=== PATIENT | male | born 1965 | race Caucasian/White ===

== ENCOUNTER → 2023-11-29 06:11 | Day surgery (SDC) | payer BC, SELFPAY | LOC: GI 06:11 | PROVIDERS: ATTENDING PHYSICIAN Internal Medicine | DX: Z12.11 Encounter for screening for malignant neoplasm of colon (principal); D12.0 Benign neoplasm of cecum; D12.3 Benign neoplasm of transverse colon; D12.8 Benign neoplasm of rectum; K62.1 Rectal polyp; Q43.8 Other specified congenital malformations of intestine; K56.2 Volvulus; Z86.010 Personal history of colon polyps | CPT/HCPCS: 45385; 45380; 88305 ==

== ENCOUNTER → 2023-12-05 12:08 | Outpatient (REF) | payer BC, SELFPAY | LOC: EMG 12:08 | PROVIDERS: ATTENDING PHYSICIAN Student in an Organized Health Care Education/Training Program | DX: R20.0 Anesthesia of skin (principal) | CPT/HCPCS: 95886; 95911 ==

== ENCOUNTER → 2023-12-10 16:21 | Outpatient (REF) | payer BC, SELFPAY | LOC: RAD 16:21 | PROVIDERS: ATTENDING PHYSICIAN Internal Medicine Cardiovascular Disease | DX: Z87.891 Personal history of nicotine dependence (principal); J98.4 Other disorders of lung; R06.09 Other forms of dyspnea | CPT/HCPCS: 71271 ==

== ENCOUNTER → 2023-12-11 07:03 | Outpatient (REF) | payer BC, SELFPAY | LOC: RSP 07:03 | PROVIDERS: ATTENDING PHYSICIAN Internal Medicine Cardiovascular Disease; FAMILY PHYSICIAN Student in an Organized Health Care Education/Training Program | DX: Z87.891 Personal history of nicotine dependence (principal) | CPT/HCPCS: 94727; 94729; 94060 ==

== ENCOUNTER 2023-12-15 09:43 | Emergency (ER) | payer OTHER, SELFPAY ==
[2023-12-15 09:55] VITALS: BP 132/79; BMI 30.9
[2023-12-15] MEDS: PERCOCET 5/325 1 TABLET PO (10:36)
[2023-12-15] MEDS: KEFLEX 500 MG PO (10:36)
[2023-12-15] MEDS: TORADOL 30 MG IM (10:37)
[2023-12-15] MEDS: ADACEL 0.5 ML IM (10:37)
--- NOTE | 2023-12-15 11:46 | ED.GENMED ---
History of Present Illness
General
Chief Complaint: Skin Surface Trauma
Source: patient
Exam Limitations: none
Time Seen by Provider: 12/15/23 10:03
Nursing documentation reviewed up to this point in time: agreed with
Travel History
Have you had any contact with someone who has COVID-19?: No
Do you have any symptoms of coronavirus? Fever > 100 degrees, chills, cough, shortness of breath, sore throat, loss of taste or smell, muscle aches, or headache?: No
History of Present Illness
History of Present Illness:
pt is a 58 y/o M with h/o r handedness
hld
smoker
copd
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 pt says the light bulb shattered and cut the hand, causing pain that radiates up hi sofrearm to elbow and painful flexion of his 4th finger
he feels the finger spasm and flex and then shoots a pain proximally
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
tetanus unknown
he doesn't have numbness in the finger or hand
no bleeding actively
Past History
Past History
ED Past Medical History: None
ED Past Surgical History: Appendectomy
Social History
Tobacco: Smoker
Alcohol: None
Drug: None
Personal:
Living: with family
Employment: Employed
Family History
Family History: Other
Review of Systems
Review of Systems
Allergies reviewed?: Yes
All Other Systems: Not applicable
Phy Exam
Physical Exam
Physical Exam:
GENERAL: Alert , in no apparent distress, comfortable at rest
HEAD: NCAT
CV: 2+ radial and ulnar pulses
cap refill intact
normal color to fingers
NEUROLOGICAL: Alert and oriented, no focal neuro deficits, , sensation grossly intact to light touch in hand
pt has painful flexion of the 4th finger; can extend but then gets shooting pain
SKIN: Warm and dry, irregular lacreation 4 cm dorsal righ thand over carpal region
MUSCULOSKELETAL: 4 cm laceration right hand
no obviuos exposed nerve
pt has shooting pain and limited rom due to the shooting pain
PSYCH: Normal and appropriate interaction.
Course
Orders/Labs/Results
Orders:
Orders
12/15/23 10:00
Wrist, Right 3 Views [CR Wrist - Right Min 3 Views] Urgent
Comment:
Reason For Exam: lac to wrist
12/15/23 10:30
Cephalexin Monohydrate [Keflex] 500 mg PO NOW STA
Ketorolac [Toradol] 30 mg IM NOW STA
Oxycodone/Acetaminophen [Percocet 5/325] 1 tablet PO NOW STA
Tetanus/Diphth/Acelpertussis [Adacel] 0.5 ml IM .ONCE ONE
Vital Signs
Initial and Last Documented VS:
Initial Vital Signs
Temp Pulse Resp BP Pulse Ox
98.1 F 75 17 132/79 96
12/15/23 09:55 12/15/23 09:55 12/15/23 09:55 12/15/23 09:55 12/15/23 09:55
Last Documented Vital Signs
Temp Pulse Resp BP Pulse Ox
98.1 F 75 17 132/79 96
12/15/23 09:55 12/15/23 09:55 12/15/23 09:55 12/15/23 09:55 12/15/23 09:55
Procedures
Laceration Closure
Right Dorsal Hand:
Status of Wound: clean
Description of Wound Edges: ragged and flap-well vascularized
Preparation: cleaned with saline
Anesthesia: 1% Lidocaine
Revision/Debridement: minor revision and irrigate-direct pressure
Wound exploration: explored to base- no FB
Type of Closure: single layer closure
Skin Closure Material: 4-0 nylon
Number of sutures: 6
MDM/Problems Addressed
Differential Diagnosis Includes:
nerve injury, laceration, retained fb
MDM/Problems Addressed:
i have a patient kortney rock 58 y/o m right hand dominant with dorsal hand laceration from a shattered lightbulb with pain extending proximally in the ulnar distribution and into this 4th finger with difficulty with full extension of the 4th
finger because it shoots pain up his forearm; I suspect the patient has a nerve injury x-rays are negative for foreign body or fracture. Patient's wound was irrigated, anesthetized and closed with suture bleeding was controlled. A volar splint was
placed by release and technical records clerk. I spoke with on-call orthopedist Dr. Taylor who was in agreement with the plan. Will cover with antibiotics, tetanus updated.
Return precautions given.
*Critical Care Note
Total Time (30-74mins, 75-104mins- exclusive of procedures): Not Applicable
ED Attending Note
-
Portions of this chart may have been created with voice recognition software.� Occasional wrong word or��sound alike� substitutions may have occurred due to the inherent limitations of voice recognition software.
Discharge Plan
Departure
Patient Disposition: Home (Routine Discharge)
Date of Disposition: 12/15/23
Time of Disposition: 11:44
Patient with high blood pressure during this ER visit?: No
Covid-19: Not Applicable
Discharge Problem:
Laceration of hand, right
Instructions: Laceration Repair With Stitches (DC)
Prescriptions:
New
cephalexin 500 mg capsule
500 mg PO Q8H Qty: 21 0RF
hydrocodone-acetaminophen 5-325 mg tablet
1 tab PO Q8H PRN (Reason: Pain) Qty: 9 0RF
No Action
doxycycline hyclate 100 MG capsule
100 mg PO Q12 Qty: 20 0RF
hydrocodone-acetaminophen 1 TABLET tablet
1 tab PO Q4HPRN PRN (Reason: pain) Qty: 14 0RF
ibuprofen 600 MG tablet
600 mg PO Q6 PRN (Reason: pain) Qty: 20 0RF
amoxicillin-pot clavulanate 1 TABLET tablet
1 tab PO Q12 Qty: 20 0RF
clindamycin phosphate 30 GM gel
1 applic topical BIDPRN PRN (Reason: hand infection)
Referrals:
Andre Devries MD [Active] - Follow up in 5-7 days (hand surgery)
Stand Alone Forms: Return to Work
Activity Restrictions/Additional Instructions:
Your x-ray was normal. It is possible that you have a nerve injury to your ulnar nerve. You should follow-up with a hand specialist.
in the meantime, keep the splint and dressing on for 24 hours. after that you can remove them to bathe and then reapply a dressing an dthe splint
take vicodin 1 tab every 6 hours as needed for pain if pain is severe
motrin every 8 hours as needed for pain in th enerve
keflex 3 times a day to prevent infection
return for : any concerns, bleeding, oozing, severe pain, or any issues.
Interventions
Interventions:
*Risk Screen - Suicide Last Done: 12/15/23 09:55
*General Assessment Last Done: 12/15/23 09:55
*Neglect/Abuse Screening Last Done: 12/15/23 09:55
*ED COVID-19 Vaccine History Last Done: 12/15/23 09:55
ED-Skin Assessment Last Done: 12/15/23 09:55
== END 2023-12-15 12:10 | disposition home or self-care (01) ==
LOC: EMR 09:43
PROVIDERS: EMERGENCY PHYSICIAN Emergency Medicine; FAMILY PHYSICIAN Student in an Organized Health Care Education/Training Program
DX: S61.411A Laceration without foreign body of right hand, initial encounter (principal); W45.8XXA Other foreign body or object entering through skin, initial encounter; Y93.89 Activity, other specified; Y92.89 Other specified places as the place of occurrence of the external cause; Y99.0 Civilian activity done for income or pay; Z23 Encounter for immunization; E78.5 Hyperlipidemia, unspecified; J44.9 Chronic obstructive pulmonary disease, unspecified; G43.909 Migraine, unspecified, not intractable, without status migrainosus; F17.210 Nicotine dependence, cigarettes, uncomplicated
CPT/HCPCS: 99284; 90471; 96372; 12002; 29125; 73110; 90715

== ENCOUNTER → 2023-12-17 14:26 | Outpatient (REF) | payer OTHER, SELFPAY ==
[2023-12-17 15:37] LABS: % Basophils 1.1 % (0-2); % Eosinophils 2.6 % (0-6); % Immature Granulocytes 0.3 % (0-0.5); % Monocytes 8.3 % (1.7-9.3); % Neutrophils 48.7 % (42.2-75.2); Absolute Basophils 0.1 10^3/uL (0-0.2); Absolute Eosinophils 0.2 10^3/uL (0-0.7); Absolute Lymphocytes 3.5 10^3/uL (1.2-3.4); Absolute Monocytes 0.7 10^3/uL (0.1-0.6); Absolute Neutrophils 4.3 10^3/uL (1.4-6.5); Hematocrit 46.7 % (39.0-52.0); Hemoglobin 16.1 g/dL (13.0-18.0); Mean Corp Hgb Conc. 34.5 g/dL (33.0-37.0); Mean Corpuscular Hgb 33.2 pg (27.0-31.0); Mean Corpuscular Volume 96.3 fL (80.0-94.0); Mean Platelet Volume 9.8 fL (7.4-10.4); Nucleated Red Blood Cells % 0 % (-); Platelet Count 243 10^3/uL (130-400); Red Blood Cell Count 4.85 10^6/uL (4.70-6.10); Red Cell Dist. Width 11.9 % (11.5-14.5); White Blood Cell Count 8.9 10^3/uL (4.8-10.8)
[2023-12-17 15:45] LABS: Blood Urea Nitrogen 15 mg/dl (9-20); Calcium 9.8 mg/dl (8.4-10.2); Carbon Dioxide 31 mmol/L (22-30); Chloride 97 mmol/L (98-107); Glucose 88 mg/dl (70-99); Potassium 4.2 mmol/L (3.5-5.1); Sodium 137 mmol/L (135-145); eGFR > 60.00
== END ==
LOC: REG 14:26
PROVIDERS: ATTENDING PHYSICIAN Orthopaedic Surgery; FAMILY PHYSICIAN Student in an Organized Health Care Education/Training Program
DX: Z01.818 Encounter for other preprocedural examination (principal)
CPT/HCPCS: 36415; 80048; 85025; 93005

== ENCOUNTER → 2024-02-12 12:37 | Outpatient (REF) | payer OTHER, SELFPAY ==
[2024-02-12 13:21] LABS: % Basophils 1.3 % (0-2); % Eosinophils 2.2 % (0-6); % Immature Granulocytes 0.4 % (0-0.5); % Lymphocytes 40.4 % (20.5-51.1); % Monocytes 9.3 % (1.7-9.3); % Neutrophils 46.4 % (42.2-75.2); Absolute Basophils 0.1 10^3/uL (0-0.2); Absolute Eosinophils 0.2 10^3/uL (0-0.7); Absolute Lymphocytes 2.9 10^3/uL (1.2-3.4); Absolute Monocytes 0.7 10^3/uL (0.1-0.6); Absolute Neutrophils 3.3 10^3/uL (1.4-6.5); Hematocrit 43.9 % (39.0-52.0); Hemoglobin 15.1 g/dL (13.0-18.0); Mean Corp Hgb Conc. 34.4 g/dL (33.0-37.0); Mean Corpuscular Hgb 33.3 pg (27.0-31.0); Mean Corpuscular Volume 96.9 fL (80.0-94.0); Mean Platelet Volume 9.7 fL (7.4-10.4); Nucleated Red Blood Cells % 0 % (-); Platelet Count 204 10^3/uL (130-400); Red Blood Cell Count 4.53 10^6/uL (4.70-6.10); Red Cell Dist. Width 12.9 % (11.5-14.5); White Blood Cell Count 7.2 10^3/uL (4.8-10.8)
[2024-02-12 14:15] LABS: Blood Urea Nitrogen 13 mg/dl (9-20); Carbon Dioxide 29 mmol/L (22-30); Chloride 98 mmol/L (98-107); Glucose 89 mg/dl (70-99); Potassium 4.5 mmol/L (3.5-5.1); Sodium 133 mmol/L (135-145); eGFR > 60.00
== END ==
LOC: REG 12:37
PROVIDERS: ATTENDING PHYSICIAN Orthopaedic Surgery; FAMILY PHYSICIAN Student in an Organized Health Care Education/Training Program
DX: Z01.818 Encounter for other preprocedural examination (principal)
CPT/HCPCS: 36415; 80048; 85025

== ENCOUNTER → 2024-07-15 11:25 | Outpatient (REF) | payer OTHER, SELFPAY ==
[2024-07-15 14:59] LABS: Hepatitis B Surface Antigen Negative (Negative)
[2024-07-15 15:08] LABS: HIV Combo Negative (Negative)
[2024-07-15 15:16] LABS: Hepatitis C Antibody Negative (Negative)
== END ==
LOC: REG 11:25
PROVIDERS: ATTENDING PHYSICIAN Orthopaedic Surgery Hand Surgery
DX: T14.90XA Injury, unspecified, initial encounter (principal); W46.0XXA Contact with hypodermic needle, initial encounter; Z77.21 Contact with and (suspected) exposure to potentially hazardous body fluids
CPT/HCPCS: 36415; 86803; 87340; 87389

== ENCOUNTER → 2025-08-14 11:52 | Outpatient (REF) | payer BC, SELFPAY ==
[2025-08-14 13:55] LABS: Hematocrit 45.7 % (39.0-52.0); Hemoglobin 15.7 g/dL (13.0-18.0); Mean Corp Hgb Conc. 34.4 g/dL (33.0-37.0); Mean Corpuscular Volume 100.7 fL (80.0-94.0); Nucleated Red Blood Cells % 0 % (-); Platelet Count 194 10^3/uL (130-400); Red Cell Dist. Width 12.1 % (11.5-14.5)
[2025-08-14 14:26] LABS: ALT (SGPT) 62 U/L (0-50); AST (SGOT) 45 U/L (17-59); Albumin 4.3 g/dl (3.5-5.0); Alkaline Phosphatase 74 U/L (38-126); Blood Urea Nitrogen 16 mg/dl (9-20); Calcium 9.4 mg/dl (8.4-10.2); Carbon Dioxide 32 mmol/L (22-30); Chloride 99 mmol/L (98-107); Glucose 89 mg/dl (70-99); Potassium 4.7 mmol/L (3.5-5.1); Sodium 137 mmol/L (135-145); Total Protein 7.4 g/dl (6.3-8.2); eGFR > 60.00
== END ==
LOC: REG 11:52
PROVIDERS: ATTENDING PHYSICIAN Nurse Practitioner; FAMILY PHYSICIAN Student in an Organized Health Care Education/Training Program
DX: R10.9 Unspecified abdominal pain (principal); K76.0 Fatty (change of) liver, not elsewhere classified
CPT/HCPCS: 36415; 80053; 82248; 85025

== ENCOUNTER → 2025-08-17 06:58 | Outpatient (REF) | payer BC, SELFPAY | LOC: RAD 06:58 | PROVIDERS: ATTENDING PHYSICIAN Nurse Practitioner; FAMILY PHYSICIAN Student in an Organized Health Care Education/Training Program | DX: R10.9 Unspecified abdominal pain (principal) | CPT/HCPCS: 74177; Q9967 ==

== ENCOUNTER → 2025-09-03 09:07 | Outpatient (REF) | payer BC, SELFPAY | LOC: HWRCS 09:07 | PROVIDERS: ATTENDING PHYSICIAN Internal Medicine Cardiovascular Disease; FAMILY PHYSICIAN Student in an Organized Health Care Education/Training Program | DX: I20.0 Unstable angina (principal); Z86.79 Personal history of other diseases of the circulatory system | CPT/HCPCS: 93306 ==

== ENCOUNTER 2025-09-14 15:42 | Inpatient (IN) | payer BC, SELFPAY ==
[2025-09-14] VITALS (19 sets, daily range): BP systolic 98–176; BP diastolic 52–98; BMI 32.4
[2025-09-14 11:04] LABS: Hematocrit 43.1 % (39.0-52.0); Hemoglobin 14.4 g/dL (13.0-18.0); Mean Corp Hgb Conc. 33.4 g/dL (33.0-37.0); Mean Corpuscular Volume 97.1 fL (80.0-94.0); Nucleated Red Blood Cells % 0 % (-); Platelet Count 186 10^3/uL (130-400); Red Cell Dist. Width 12.0 % (11.5-14.5)
[2025-09-14 11:20] LABS: ALT (SGPT) 54 U/L (0-50); AST (SGOT) 42 U/L (17-59); Albumin 4.2 g/dl (3.5-5.0); Alkaline Phosphatase 81 U/L (38-126); Blood Urea Nitrogen 12 mg/dl (9-20); Calcium 9.3 mg/dl (8.4-10.2); Carbon Dioxide 32 mmol/L (22-30); Chloride 100 mmol/L (98-107); Estimated Creatinine Clearance 99 ml/min; Glucose 97 mg/dl (70-99); Potassium 4.5 mmol/L (3.5-5.1); Sodium 135 mmol/L (135-145); Total Protein 7.2 g/dl (6.3-8.2); eGFR > 60.00
[2025-09-14 11:32] LABS: Troponin I < 0.012 ng/ml
--- NOTE | 2025-09-14 11:34 | ED.GENMED ---
History of Present Illness
<Ho Siu MD - Last Filed: 09/16/25 02:30>
General
Chief Complaint: Chest Pain
Time Seen by Provider: 09/14/25 10:12
<Juan Winter MD, Resident - Last Filed: 09/14/25 13:45>
General
Source: patient
History of Present Illness
History of Present Illness:
Hernan is a 60-year-old male with past medical history significant for essential hypertension, hyperlipidemia, smoker (quit about 2 months ago, 6-7 drinks couple per day who has been seeing cardiology for recurrent chest pain and is currently on
amlodipine, aspirin, atorvastatin, carvedilol and omeprazole.
He reported chest pressure over the weekend that intensified and was not relieved with medications, following that he has had intermittent chest pain and was brought to the ED. He currently rates the pain as 5/10, consistent and feels like pressure
in nature. No associated nausea, vomiting, abdominal pain, diaphoresis, palpitations, syncopal or near syncopal episodes.
Troponins normal, EKG done in the ER consistent with normal sinus rhythm with nonspecific T wave changes.
Past History
<Ho Siu MD - Last Filed: 09/16/25 02:30>
Past History
ED Past Medical History: None
ED Past Surgical History: Appendectomy
Social History
Tobacco: Smoker
Alcohol: None
Drug: None
Personal:
Living: with family
Employment: Employed
Family History
Family History: Other
Phy Exam
<Juan Winter MD, Resident - Last Filed: 09/14/25 13:45>
General Physical Exam
General Presentation: well appearing and no apparent distress
General age: appears stated age
General Skin: warm and dry
General Habitus: normal
General Mental: alert
Cardiovascular Exam
Cardiovascular Exam: regular rate/rhythm, no edema, no murmur and normal peripheral pulses
Pulmonary Exam
Pulmonary Exam: lungs clear, no respiratory distress, no rales, no rhonchi and no wheezing
Gastrointestinal Exam
Gastrointestinal Exam: normal bowel sounds, non tender and soft
Neurological Exam
Neurological Exam: alert, oriented x3, no motor deficits, no sensory deficits and speech normal
Musculoskeletal Exam
Musculoskeletal Exam: full ROM
Psychiatric Exam
Psychiatric Exam: normal mood/affect
Scores
<Ho Siu MD - Last Filed: 09/16/25 02:30>
Heart Score for Chest Pain Patients
Heart Score for Chest Pain Patients: 4
Heart Score Risk: 20.3% MACE over next 6 weeks
<Juan Winter MD, Resident - Last Filed: 09/14/25 13:45>
Heart Score for Chest Pain Patients
STEMI patient?: No
History: Slightly or Non-Suspicious
ECG: Nonspecific Repolarization
Age: >45 - <65 years
Risk Factors: >/= 3 Risk Factors or History of CAD
Troponin: </= Normal Limit
Heart Score for Chest Pain Patients: 4
Heart Score Risk: 20.3% MACE over next 6 weeks
Course
<Ho Siu MD - Last Filed: 09/16/25 02:30>
Orders/Labs/Results
Orders:
Orders
09/14/25 Breakfast
Cholesterol Lowering
At Your Request: Full Participation
Cholesterol Lowering: Sodium, 2 Gram
09/14/25 09:58
Electrocardiogram (*1) Urgent
Reason for Study: Chest Pain
EKG- Treatment ONCE
09/14/25 10:52
CMP [Comprehensive Metabolic Panel] Urgent
Complete Blood Count/With Diff Urgent
Glycohemoglobin (HgbA1c) Urgent
Troponin I Urgent
09/14/25 11:06
Aspirin 325 mg PO NOW ONE
09/14/25 11:07
0.9% Sodium Chloride 500 ml [Nss] 500 ml IV BOLUS
Nitroglycerin Sublingual [Nitrostat (Sublingual)] 0.4 mg SL NOW ONE
09/14/25 15:01
Admit/Transfer Patient As Directed
Co-Sign Provider:
Level of Care: Inpatient admission
Assign to:: IVU
Physician / Group: Hospitalist
Diagnosis: Unstable angina
Patient Condition: Fair
Reason for Hospitalization: Unstable angina and patient is going for coronary angiography.
Expected length of stay greater than two midnights?: Yes
ELOS- Estimated Length of Stay in days: 4
I certify the patient meets the requirements for IP care: Yes
PRN Pain Medication Management As Directed
May give lesser potent ordered pain med per pt: Yes
preference::
Protocol:: Medication orders for pain may be administered in a
manner that supports deferring to patient preference
when the pt is:
- Requesting an ordered lesser potent pain medication.
Least to most potent pain medications are defined
as: acetaminophen < NSAID < tramadol < opioids
(morphine, oxycodone, hydromorphone).
- Requesting a lesser dose of the same medication IF
ORDERED.
- Requesting a less intrusive route of administration
if both routes are prescribed by the provider (PO <
IV).
09/14/25 15:05
Code Status As Directed
Resuscitation Status: Full Code
09/14/25 15:27
Case Management Consult Once
Case Management Consult: Other
Comment: Substance abuse counseling - [facility]
Lorazepam [Ativan] 1 mg IV Q1HPRN PRN
Lorazepam [Ativan] 1 mg PO Q2HPRN PRN
Lorazepam [Ativan] 2 mg IV Q1HPRN PRN
MSAS SCORE As Directed
MSAS Score 0-4: Repeat MSAS every 2 hours until 0-4 for three consecutive assessments, then every 4 hours x 48
hours.
MSAS Score 5-7: For MILD withdrawl symptoms. Repeat MSAS and RASS every 2 hours
MSAS Score 8-11: For MODERATE withdrawal symptoms. Repeat MSAS and RASS every 1 hour. Consider ICU or IMU
level of care.
MSAS Score > 11: For SEVERE withdrawal symptoms. Repeat MSAS and RASS every 1 hour. Notify provider, consider
ICU level of care.
MSAS Additional Instructions: If no improvement or no decrease in score from severe to moderate within 12
hours, consult psychiatry
MSAS Notify Provider: Notify provider if patient requires more than 10 mg of Lorazepam in eight hour period.
09/14/25 17:20
CARDIOLOGY CONSULT Routine
Consulting Provider: Jairo Mena
Was physician already notified: Yes
Reason for consult: chest pain, unstable angina
Activity As Directed
Activity Level: Ambulate
Compression Sleeves [Pneumatic Compression Sleeves] As Directed
Type: Knee high
ECG as needed As Directed
ECG as needed for:: Chest Pain
Additional Instructions:: with chest pain x 2 episodes.
INT (Intravenous Needle Therapy) As Directed
Comment: maintain peripheral IV access
Intake/ Output As Directed
Frequency: Per unit guidelines
Vital Signs As Directed
Frequency: q4h
Weight As Directed
Frequency: Daily
Pulse Ox/spot Check [RESP] Routine
Quantity: 1
Special Instructions: on admission and then every shift if on oxygen
Ot Eval And Treat Routine
Pt Eval And Treat Routine
Activity Level: Out of Bed-Early Mobility
DX DVT Prevention Inpt Video Routine
DX Deep Vein Thrombosis Video Routine
DX Deep Vein Thrombosis Video Routine
09/14/25 18:00
Enoxaparin Sodium [Lovenox] 40 mg SC QPM
09/14/25 20:00
Carvedilol [Coreg] 3.125 mg PO BID
Thiamine Injection 200 mg IV Q12
09/15/25 05:59
Complete Blood Count/With Diff IN AM
Comprehensive Metabolic Panel IN AM
09/15/25 08:00
Amlodipine [Norvasc] 5 mg PO DAILY
Aspirin Low Dose EC [Aspir Low (Enteric Coated)] 81 mg PO DAILY
Atorvastatin [Lipitor] 40 mg PO DAILY
FOLic ACID [Folvite] 1 mg PO DAILY
Nicotine [Nicoderm Transdermal] 7 mg TRANSDERM DAILY
Pantoprazole [Protonix] 40 mg PO DAILY
09/17/25 20:00
Thiamine HCl [Vitamin B1] 100 mg PO BID
Abnormal Lab Results
09/14/25
10:52
RBC 4.44 L 10^6/uL
(4.70-6.10)
MCV 97.1 H fL
(80.0-94.0)
MCH 32.4 H pg
(27.0-31.0)
Immature Gran % 0.7 H %
(0-0.5)
Carbon Dioxide 32 H mmol/L
(22-30)
ALT 54 H U/L
(0-50)
09/14/25 10:52
09/14/25 10:52
Vital Signs
Initial and Last Documented VS:
Initial Vital Signs
Temp Pulse Resp BP Pulse Ox
97.8 F 71 18 163/91 99
09/14/25 10:03 09/14/25 10:03 09/14/25 10:03 09/14/25 10:03 09/14/25 10:03
Last Documented Vital Signs
Temp Pulse Resp BP Pulse Ox
98.1 F 65 18 126/72 98
09/15/25 15:45 09/15/25 11:44 09/15/25 15:45 09/15/25 11:44 09/15/25 15:45
<Juan Winter MD, Resident - Last Filed: 09/14/25 13:45>
Orders/Labs/Results
Orders:
Orders
09/14/25 Breakfast
Cholesterol Lowering
At Your Request: Full Participation
Cholesterol Lowering: Sodium, 2 Gram
09/14/25 09:58
Electrocardiogram (*1) Urgent
Reason for Study: Chest Pain
EKG- Treatment ONCE
09/14/25 10:52
CMP [Comprehensive Metabolic Panel] Urgent
Complete Blood Count/With Diff Urgent
Glycohemoglobin (HgbA1c) Urgent
Troponin I Urgent
09/14/25 11:06
Aspirin 325 mg PO NOW ONE
09/14/25 11:07
0.9% Sodium Chloride 500 ml [Nss] 500 ml IV BOLUS
Nitroglycerin Sublingual [Nitrostat (Sublingual)] 0.4 mg SL NOW ONE
09/14/25 15:01
Admit/Transfer Patient As Directed
Co-Sign Provider:
Level of Care: Inpatient admission
Assign to:: IVU
Physician / Group: Hospitalist
Diagnosis: Unstable angina
Patient Condition: Fair
Reason for Hospitalization: Unstable angina and patient is going for coronary angiography.
Expected length of stay greater than two midnights?: Yes
ELOS- Estimated Length of Stay in days: 4
I certify the patient meets the requirements for IP care: Yes
PRN Pain Medication Management As Directed
May give lesser potent ordered pain med per pt: Yes
preference::
Protocol:: Medication orders for pain may be administered in a
manner that supports deferring to patient preference
when the pt is:
- Requesting an ordered lesser potent pain medication.
Least to most potent pain medications are defined
as: acetaminophen < NSAID < tramadol < opioids
(morphine, oxycodone, hydromorphone).
- Requesting a lesser dose of the same medication IF
ORDERED.
- Requesting a less intrusive route of administration
if both routes are prescribed by the provider (PO <
IV).
09/14/25 15:05
Code Status As Directed
Resuscitation Status: Full Code
09/14/25 15:27
Case Management Consult Once
Case Management Consult: Other
Comment: Substance abuse counseling - [facility]
Lorazepam [Ativan] 1 mg IV Q1HPRN PRN
Lorazepam [Ativan] 1 mg PO Q2HPRN PRN
Lorazepam [Ativan] 2 mg IV Q1HPRN PRN
MSAS SCORE As Directed
MSAS Score 0-4: Repeat MSAS every 2 hours until 0-4 for three consecutive assessments, then every 4 hours x 48
hours.
MSAS Score 5-7: For MILD withdrawl symptoms. Repeat MSAS and RASS every 2 hours
MSAS Score 8-11: For MODERATE withdrawal symptoms. Repeat MSAS and RASS every 1 hour. Consider ICU or IMU
level of care.
MSAS Score > 11: For SEVERE withdrawal symptoms. Repeat MSAS and RASS every 1 hour. Notify provider, consider
ICU level of care.
MSAS Additional Instructions: If no improvement or no decrease in score from severe to moderate within 12
hours, consult psychiatry
MSAS Notify Provider: Notify provider if patient requires more than 10 mg of Lorazepam in eight hour period.
09/14/25 17:20
CARDIOLOGY CONSULT Routine
Consulting Provider: Jairo Mena
Was physician already notified: Yes
Reason for consult: chest pain, unstable angina
Activity As Directed
Activity Level: Ambulate
Compression Sleeves [Pneumatic Compression Sleeves] As Directed
Type: Knee high
ECG as needed As Directed
ECG as needed for:: Chest Pain
Additional Instructions:: with chest pain x 2 episodes.
INT (Intravenous Needle Therapy) As Directed
Comment: maintain peripheral IV access
Intake/ Output As Directed
Frequency: Per unit guidelines
Vital Signs As Directed
Frequency: q4h
Weight As Directed
Frequency: Daily
Pulse Ox/spot Check [RESP] Routine
Quantity: 1
Special Instructions: on admission and then every shift if on oxygen
Ot Eval And Treat Routine
Pt Eval And Treat Routine
Activity Level: Out of Bed-Early Mobility
DX DVT Prevention Inpt Video Routine
DX Deep Vein Thrombosis Video Routine
DX Deep Vein Thrombosis Video Routine
09/14/25 18:00
Enoxaparin Sodium [Lovenox] 40 mg SC QPM
09/14/25 20:00
Carvedilol [Coreg] 3.125 mg PO BID
Thiamine Injection 200 mg IV Q12
09/15/25 05:59
Complete Blood Count/With Diff IN AM
Comprehensive Metabolic Panel IN AM
09/15/25 08:00
Amlodipine [Norvasc] 5 mg PO DAILY
Aspirin Low Dose EC [Aspir Low (Enteric Coated)] 81 mg PO DAILY
Atorvastatin [Lipitor] 40 mg PO DAILY
FOLic ACID [Folvite] 1 mg PO DAILY
Nicotine [Nicoderm Transdermal] 7 mg TRANSDERM DAILY
Pantoprazole [Protonix] 40 mg PO DAILY
09/17/25 20:00
Thiamine HCl [Vitamin B1] 100 mg PO BID
Abnormal Lab Results
09/14/25
10:52
RBC 4.44 L 10^6/uL
(4.70-6.10)
MCV 97.1 H fL
(80.0-94.0)
MCH 32.4 H pg
(27.0-31.0)
Immature Gran % 0.7 H %
(0-0.5)
Carbon Dioxide 32 H mmol/L
(22-30)
ALT 54 H U/L
(0-50)
09/14/25 10:52
09/14/25 10:52
Vital Signs
Initial and Last Documented VS:
Initial Vital Signs
Temp Pulse Resp BP Pulse Ox
97.8 F 71 18 163/91 99
09/14/25 10:03 09/14/25 10:03 09/14/25 10:03 09/14/25 10:03 09/14/25 10:03
Last Documented Vital Signs
Temp Pulse Resp BP Pulse Ox
98.1 F 65 18 126/72 98
09/15/25 15:45 09/15/25 11:44 09/15/25 15:45 09/15/25 11:44 09/15/25 15:45
<Juan Winter MD, Resident - Last Filed: 09/14/25 13:45>
MDM/Problems Addressed
Differential Diagnosis Includes:
Myocardial infarction
Unstable angina/ACS
Obstructive coronary vessel disease
MDM/Problems Addressed:
Given that the patient has ongoing symptoms. He has had chest pressure for last couple of days and has had intermittent chest pain, EKG was done in the ED which showed*normal sinus rhythm with nonspecific T wave abnormality and normal troponins.
Cardiology was consulted who recommended cardiac catheterization for accelerated angina
Patient is being admitted on hospitalist service for cardiac catheterization
<Ho Siu MD - Last Filed: 09/16/25 02:30>
*Pulse Oximetry
SaO2: 98
Oxygen Mode of Delivery: Room air
<Juan Winter MD, Resident - Last Filed: 09/14/25 13:45>
*Pulse Oximetry
Patient hypoxic: no
*Critical Care Note
Total Time (30-74mins, 75-104mins- exclusive of procedures): Not Applicable
ED Attending Note
<Ho Siu MD - Last Filed: 09/16/25 02:30>
ED Attending Note
Patient seen and examined by attending physician: Yes
ED Attending Note:
Patient with history of hypertension, hypercholesterolemia, and an ex-smoker, presents to ED secondary to intermittent left-sided chest pain over the past 2 weeks. Patient has been evaluated by operations management trainee, Dr. Torres, and has been started on
multiple medications, including aspirin, amlodipine, Coreg, and Lipitor. Over the weekend, chest pain, described as pressure, became more severe, lasting few hours. Since then, pain has been intermittent, including this morning, when he was
getting ready to go out. At the time of evaluation ED, patient states that his chest pain is minimal to none. Denies associated shortness of breath, diaphoresis, dizziness. Denies any alleviating or exacerbating factors. Denies back pain.
Denies leg pain or swelling. Denies recent travel or surgery. Denies family history of heart disease.
Physical Exam
General: no apparent distress, not acutely ill. afebrile
Head: nc/at. eomi
Neck: supple. no jvd
Heart: s1/s2 regular rate and rhythm
Lungs: no acute respiratory distress. clear bilaterally
Abdomen: normal bowel sounds. not tender.
Neuro: alert and oriented x 3. no focal neurological deficits
Skin: no rash
Psychiatric: well kept. interactive and cooperative
Extremities: no edema. no calf tenderness.
Discussed with on-call cardiology, Dr. Mena. Requests patient to be admitted under hospitalist service for further evaluation and treatment, including likely cardiac catheterization.
-
Portions of this chart may have been created with voice recognition software.� Occasional wrong word or��sound alike� substitutions may have occurred due to the inherent limitations of voice recognition software.
Discharge Plan
Departure
Patient Disposition: Admit
Date of Disposition: 09/14/25
Time of Disposition: 12:47
Presentation/result/management discussed w/ accepting MD/DO: Hospitalist
Patient with high blood pressure during this ER visit?: No
Discharge Problem:
Chest pain
Interventions
Interventions:
*Risk Screen - Suicide Last Done: 09/14/25 10:03
*General Assessment Last Done: 09/14/25 10:40
*Neglect/Abuse Screening Last Done: 09/14/25 10:40
*ED- Fall Risk Assessment Last Done: 09/14/25 10:40
*ED COVID-19 Vaccine History Last Done: 09/14/25 17:28
*ED Influenza Vaccine History Last Done: 09/14/25 10:40
*Nursing Disposition Last Done: 09/14/25 16:37
ED- Cardiac Assessment Last Done: 09/14/25 10:40
Discharge Date and Time
Discharge Date/Time: 09/14/25 16:38
[2025-09-14] MEDS: NSS 500 IV (11:38)
[2025-09-14] MEDS: ASPIRIN 325 MG PO (11:43)
--- NOTE | 2025-09-14 12:03 | CON.CAR ---
Consultation
Consultation Request
Date/Time Consultation Requested: September 14, 2025 11:30 AM
Date/Time Consultation Performed: September 14, 2025 12:05 PM
Requesting Provider: Emergency room
Performing Provider: Jairo Mena
Reason for Consultation: Chest pain
Medical History
-
Chief Complaint: Chest pain
History of Present Illness:
60-year-old male with past medical history of GERD, former smoker just quit within the last couple days, current alcohol use 6 drinks a day, hypertension, dyslipidemia who is here for evaluation of chest pain. He has been seen in the office for
worsening and ongoing chest pain. He describes it as a pressure feeling in the center of his chest. Over the last 6 months he tells me it has been coming much more frequent. Today, it awoke him from his sleep. This is the reason for his
presentation. Additionally, his primary marine welder Dr. Christine tried to obtain authorization for coronary angiography however was denied.
In speaking with Dr. Christine as well as emergency room physician plan is for coronary angiography later today.
Past Medical History
Past Medical History: Other (GERD, former smoker just quit within the last couple days, current alcohol use 6 drinks a day, hypertension, dyslipidemia)
Past Surgical History: Other (hand surgery )
Social History
Tobacco: Former Smoker (quite last couple days)
Alcohol: Daily
Drug: None
Personal:
Living: With Family
Employment: Not Employed
Family History
Family History: Reviewed & Not Pertinent
Allergies / Home Medications
Allergy/AdvReac Type Severity Reaction Status Date / Time
No Known Allergies Allergy Verified 09/14/25 10:03
�Medication �Instructions �Recorded �Confirmed �Type
amlodipine 5 mg tablet (Norvasc) 5 mg PO DAILY Blood Pressure 09/14/25 09/14/25 History
aspirin 81 mg tablet,delayed 81 mg PO DAILY Blood Clot 09/14/25 09/14/25 History
release Prevention/Tx
atorvastatin 40 mg tablet (Lipitor) 40 mg PO DAILY High Cholesterol 09/14/25 09/14/25 History
carvedilol 3.125 mg tablet (Coreg) 3.125 mg PO BID Heart 09/14/25 09/14/25 History
Disease/Condition
omeprazole 40 mg capsule,delayed 40 mg PO DAILY Gastrointestinal 09/14/25 09/14/25 History
release Issue
Review of Systems
-
All other systems: Negative unless noted
Physical Exam
Vital Signs
Temp Pulse Resp BP Pulse Ox
97.8 F 66 19 125/76 98
09/14/25 10:03 09/14/25 11:45 09/14/25 11:45 09/14/25 11:00 09/14/25 11:45
Lab Results
09/14/25 10:52
09/14/25 10:52
Troponin I < 0.012 ng/ml 09/14/25 10:52
Physical Exam
General: Well Developed and No Apparent Distress
HEENT: Normocephalic
Respiratory: Clear and Other (Poor air movement bilaterally)
Cardiac: S1/S2 and Regular Rhythm
GI: Soft
Musculoskeletal: No Edema
Skin: Warm and Dry
Neuro: AO x 3
Psych: Calm
Impression / Plan
-
A/P: 60-year-old male with past medical history of dyslipidemia, hypertension, former smoker, alcohol use disorder 6 drinks a day, who is here today with symptoms concerning for accelerating angina.
Accelerated angina
- Aspirin 324 already given
- Coronary angiography later today
-Recent echo showing normal LV function no wall motion no significant valve disease
Hypertension
- Continue amlodipine and Coreg
Dyslipidemia
- Continue atorvastatin 40
Former smoker
- Quit a few days ago encouraged abstinence
Alcohol use disorder
- 6 drinks a day
- Per primary
-Recommend 1-2 drinks a day/complete cessation
Data Reviewed
-
EKG: Tracing Personally Visualized and interpreted (sr)
Medical Tests (Nuc Med, Echo etc): Report Reviewed by me
Labs: Labs Reviewed by me
--- NOTE | 2025-09-14 13:34 | W.PN.UPDATE ---
Update Note
Progress Note Update
60-year-old male with GERD, HTN, HLD,, tobacco use (recently quit), alcohol use who presented to the hospital with a complaint of chest pain. Patient was seen in cardiology's office today with worsening chest pain described as a pressure in the
center of his chest. States over the last 6 months his symptoms have become more frequent, today it woke him from sleep. Follows with Dr. Christine his primary customer relations coordinator who attempted to obtain authorization for [facility] that was denied by insurance.
Was sent into the emergency department for coronary angiography. AFVSS on arrival. Initial labs with bicarb 32, ALT 54 and troponin <0.012. ECG showing NSR with flattened T waves in inferior leads and leads V3 through V6. Recent TTE with normal
LV function and no WMA or valve disease.
AO x 4, NAD. Benign cardiopulmonary exam. No edema or JVD. Benign abdomen. Skin warm and dry, no rash or jaundice. No CN deficits or FND noted.
#Angina. Accelerated angina with recent increase in symptom frequency. Intermediate to high pretest probability. Normal troponin, TTE with flattened T waves, typical chest pain symptoms. S/p full dose aspirin given in the ED. Planning for left
heart catheter today. Monitor on telemetry pending left heart cath. Continue with high intensity statin and start baby aspirin morning of 09/15. Start PRN nitro SL. Consider beta-blockade. Check lipid panel and A1c
#Alcohol use disorder. 6 drinks a day. Denies significant withdrawal symptoms in the past. Start [facility] protocol
#Former tobacco use. Recently stopped smoking. Encourage continued abstinence. Offer nicotine patches. Plan follow-up outpatient with PCP, can consider Wellbutrin or Chantix if needed
Diet -- NPO pending [facility]
DVT -- SQ Lovenox
CODE -- Full
I have independently evaluated the patient at the bedside in the ED. I we will be admitting Hernan Mera to the IVU as he is at high risk for worsening morbidity due to coronary ischemia and require intensive monitoring of his cardiac enzymes and
telemetry strip. I have discussed this case with the ED attending and customer relations coordinator. I reviewed the case with the resident.
Please see residents H&P for more detail, once available
--- NOTE | 2025-09-14 14:03 | HPS.HSE ---
Family Physician
-
Family Physician: Quinn Cai DO
beef cattle farm worker: AUSTYN Cody
Chief Complaint
-
Chest pain
History of Present Illness
60-year-old male with past medical history of GERD, hypertension, hyperlipidemia, tobacco use, alcohol usage daily presented to the hospital with a complaint of chest pain. He had this chest pain for the past 6 months and today it made him to wake
up from the sleep. He was noncompliance with his medications includes aspirin, statin. And recently he went for beef cattle farm worker Dr. Christine appointment and Explained well regards his medications and was prescribed on aspirin, statin, carvedilol
and plan to go for the cardiac cath at that time however his insurance did not cover because they need 2 cardiac medications for the approval to go for the procedure. So Dr. Christine added recently added amlodipine, nitroglycerin as required whenever
he has a chest pain. 2 days chest pain was constant pressure in nature, nonradiating, had similar episodes in the past and was diagnosed with pericarditis around 2010. His current pain was not associated with dizziness, palpitation, blurry vision,
shortness of breath, fatigue,weakness, nausea, vomiting, sweating.
He used to take alcohol every day 2 beers, 2 shots, current smoker he started because he is unemployed for the past 2 years due to his right wrist fracture, ruptured tendon and he underwent for reconstruction surgery procedure. Currently he has no
allergy history for any medications.
His Dulce presented at his room.
Medical History
Past Medical History
Past Medical History: Reports HTN, Hypercholesterolemia and Other (Pericarditis,)
Past Surgical History: Reports Other (Right wrist tendon reconstruction 4 times)
Social History
Tobacco: Smoker
Alcohol: Daily (3 beers, 3 shots daily for almost 1 yr. )
Personal:
Employment: Not Employed (past 2 yrs. )
Family History
Family History: CAD (father- CAD, stent, valve replacement TAVR. )
Allergies / Home Medications
Allergies reflects when Allergies were last updated in [facility].
Home Medications with original date entered in [facility]
�Medication �Instructions �Recorded �Confirmed �Type
amlodipine 5 mg tablet (Norvasc) 5 mg PO DAILY Blood Pressure 09/14/25 09/14/25 History
aspirin 81 mg tablet,delayed 81 mg PO DAILY Blood Clot 09/14/25 09/14/25 History
release Prevention/Tx
atorvastatin 40 mg tablet (Lipitor) 40 mg PO DAILY High Cholesterol 09/14/25 09/14/25 History
carvedilol 3.125 mg tablet (Coreg) 3.125 mg PO BID Heart 09/14/25 09/14/25 History
Disease/Condition
omeprazole 40 mg capsule,delayed 40 mg PO DAILY Gastrointestinal 09/14/25 09/14/25 history
Allergy/Medication List:
No allergies for food, medications.
Review of Systems
-
History Source: Patient
A 12 point ROS was completed and negative except as noted: Yes
Physical Exam
Vital Signs
Vital Signs
Temp Pulse Resp BP Pulse Ox
97.8 F 66 19 125/76 98
09/14/25 10:03 09/14/25 11:45 09/14/25 11:45 09/14/25 11:00 09/14/25 11:45
Physical Exam
General: Well Developed and Pain (Chest pain)
Respiratory: Clear
Cardiac: S1/S2 and Regular Rhythm
GI: Soft, Non Tender and Non Distended
Musculoskeletal: No Clubbing, No Cyanosis and No Edema
Neuro: AO x 3
Psych: Calm
Laboratory Results
-
09/14/25 10:52
09/14/25 10:52
Laboratory Results
Total Bilirubin 1.0 mg/dl (0.2-1.3) 09/14/25 10:52
AST 42 U/L (17-59) 09/14/25 10:52
ALT 54 U/L (0-50) H 09/14/25 10:52
Alkaline Phosphatase 81 U/L (38-126) 09/14/25 10:52
Troponin I < 0.012 ng/ml 09/14/25 10:52
Impression/Plan
-
IMPRESSION & PLAN:
60-year-old male with past history of GERD, current smoker, daily alcohol usage, hypertension, dyslipidemia presented to ED for the evaluation of chest pain and was diagnosed with unstable angina
# Unstable angina:
Troponin<0.012 normal,
EKG 66 bpm, normal axis, sinus rhythm, T wave flattening, afebrile, vital stable
Continuous chest pain even on rest, constant pressured pain.
His oxygen saturation 98.
Currently on aspirin 325 mg tablet,
Spike Driver consulted and recommended for coronary angiography later today.
Patient on n.p.o
Continue baby aspirin 81 mg,
Continue atorvastatin 40 mg, ordered lipid profile. If LDL is more than 70 then we will increase the statin dosage.
Continue carvedilol, amlodipine but given the history of CAD.
Ordered CMP, CBC, lipid panel, HbA1c for tomorrow.
# Alcohol use disorde:
Currently he is taking 6 alcohol drinks per day
MSAS protocol added.
Monitor his vitamin B12, folic acid while at the hospitalization.
# Tobacco usage:
While on inpatient started him on nicotine patch.
# Hyperlipidemia:
Continue atorvastatin 40 mg
# Hypertension secondary to CAD:
Continue amlodipine, carvedilol
His blood pressure is stable on admission.
Diet--n.p.o. for PATRICE today's procedure, tomorrow will start with low-cholesterol diet.
DVT--Lovenox subcutaneous
Code--full
--- NOTE | 2025-09-14 18:03 | PTCARENOTE ---
Received the patient from the crime lab technician in his bed. The patient is aaox3. His vital signs are stable. Sinus mar is noted on the monitor. His right R-band is in place. A right radial pulse is noted. I oriented him to his room. Activity restrictions
and expected oob time was reviewed with the patient. His call jacobo is within reach.
--- NOTE | 2025-09-14 18:18 | PTCARENOTE ---
Attempted to remove 3ml of air from R-band. His site began to ooz. I replaced the 3ml of air back into the band.
--- NOTE | 2025-09-14 18:43 | ITS.CL.CATH ---
Athletic Field Custodian - Catheterization
Cardiac Catheterization
Procedure Report:
CARDIAC CATHETERIZATION REPORT
Date of Procedure: 09/14/2025
Referring: Jairo Mena M.D.
INDICATION: Accelerating chest pain, unstable angina.
PROCEDURE:
1. Left heart catheterization
2. Coronary angiography.
3. Intracoronary nitroglycerin infusion.
A total of 29 minutes of procedural/moderate sedation was utilized. An independent biomedical photographer was present to assist with and help manage the patient's level of consciousness and physiologic status.
ACCESS:
1. 6 Sinhala right radial artery using a modified Seldinger technique.
CATHETERS:
1. 5 Sinhala JR4.
2. 5 Sinhala JL 3.5.
HEMODYNAMIC DATA
Weight (kg): 105.2
AO (s/d/x, mmHg): 120/71/91
LV (s/x mmHg): 120/15
AV gradient (x, mmHg): None.
LEFT VENTRICULOGRAPHY: Not performed.
CORONARY ANGIOGRAPHY
Dominance: Right.
Left Main: Normal size, bifurcating vessel. There is no coronary artery disease.
LAD: Normal size vessel giving rise to 2 diagonals. There is no coronary artery disease. There is ROBERT II flow in the mid and distal vessel with slow filling.
Ramus: Congenitally absent.
Circumflex: Normal size, nondominant vessel giving rise to 1 obtuse marginal. There is no coronary artery disease.
RCA: Large size, dominant vessel with a large posterolateral arcade. There is no coronary artery disease. There is slow flow in the distal RPDA and RPL.
INTERVENTION(S)
1. Intracoronary injection of nitroglycerin 150 mcg with repeat angiography demonstrating improvement in coronary flow.
Narrative:
After completing initial coronary angiography, I was struck by the slow flow through the LAD and RCA. With the Jovan left catheter still engaged in the left main coronary artery, nitroglycerin 150 mcg was given and flushed through the catheter.
After clearing the manifold, angiography was repeated demonstrating an immediate improvement in the flow through the LAD without appreciable change in the size of the epicardial vessel. This is consistent with endothelial dysfunction. The catheter
was disengaged and removed over a standard J-wire.
Closure Device: Vascular band.
Radiation (mGy): 578.92
DAP (cm2.Gy): 43.7993
Fluoroscopy time (minutes): 3.1
CONCLUSIONS
1. Right dominant circulation with no coronary artery disease but notable slow flow in the distal RCA and distal LAD with significant improvement in flow with injection of intracoronary nitroglycerin highly suggestive of endothelial dysfunction.
2. Mildly elevated filling pressures (LVEDP = 15 mmHg at 105.2 kg).
RECOMMENDATIONS:
1. Expectant management after cardiac catheterization via right radial approach.
2. Limited weight bearing on the right for one week.
3. Treatment of underlying endothelial dysfunction. Discontinue carvedilol in favor of isosorbide mononitrate 30 mg daily. Maintain amlodipine 5 mg daily.
4. Aggressive primary prevention.
5. Given prior right wrist instrumentation/injury, monitor right radial access site overnight.
Copy to: Gadiel Torres D.O., Delores Cai D.O.
Gadiel Torres DO, FACC, FACP
[2025-09-14] MEDS: NSS 1000 IV (19:05)
[2025-09-14] MEDS: THIAMINE INJECTION 200 MG IV (21:11)
[2025-09-14] MEDS: LOVENOX 40 MG SC (21:15)
--- NOTE | 2025-09-15 04:34 | PTCARENOTE ---
Assumed care on pt at 1900, aaox3, at bedside and staying overnight. R band to right wrist intact, no swelling or bleeding noted, off at 2200. Gauze and tegaderm applied to site, limb restriction reviewed with pt. Sr/SB on tele monitor HR low
50's, bp stable. Call jacobo within reach, POC ongoing.
[2025-09-15 05:52] VITALS: BP 123/77
[2025-09-15 06:00] VITALS: BMI 32.3
[2025-09-15 06:20] LABS: Hematocrit 40.8 % (39.0-52.0); Hemoglobin 14.2 g/dL (13.0-18.0); Mean Corp Hgb Conc. 34.8 g/dL (33.0-37.0); Mean Corpuscular Volume 95.6 fL (80.0-94.0); Nucleated Red Blood Cells % 0 % (-); Platelet Count 198 10^3/uL (130-400); Red Cell Dist. Width 12.0 % (11.5-14.5)
--- NOTE | 2025-09-15 07:07 | W.PN.HOSP.TC ---
Today's Communication/Plan
-
CBC, CMP
HbA1c, lipid profile pending
Follow-up outpatient radiator repairer
Discussed regards alcohol withdrawal, nicotine alternate use include Chantix.
Recommended to follow-up with PCP regards his nicotine patch explained his coronary angiography results.
Assessment / Plan
Assessment / Plan
60-year-old male with past history of GERD, current smoker, daily alcohol usage, hypertension, dyslipidemia presented to ED for the evaluation of chest pain and diagnosed with unstable angina,Patient underwent coronary angiography 09/14 with a
result of no thrombus, slow flow noted while on injection at the procedure, intracoronary nitroglycerin immediately improved the flow, suggestive of endothelial dysfunction.
#angina secondary to endothelial dysfunction:
Vitals: BP 128/98 Max around 630 176/96, UT 55, RR 18, oxygen saturation 98 room air, temp 97.5
Chemistry WNL, HbA1c pending, lipid profile today ordered pending results.
LDL 92 increase the dose of atorvastatin to 80 mg.
Troponin<0.012 normal,
EKG 66 bpm, normal axis, sinus rhythm, T wave flattening, afebrile, vital stable
Continuous chest pain even on rest, constant pressured pain.
His oxygen saturation 98.
Currently on aspirin 325 mg tablet switched to baby aspirin from yesterday.
Patient on n.p.o
Continue baby aspirin 81 mg,
Switch to atorvastatin 80 mg due to LDL 92 and recommended to continue while on discharge.
Continue amlodipine but given the history of CAD. Carvedilol held by the radiator repairer after the procedure.
Medical Staff Physician consulted and recommended to hold beta-sandra carvedilol, started with isosorbide mononitrate Imdur extended release 30 mg once a day along with amlodipine 5mg.
# Alcohol use disorder:
Currently he is taking 6 alcohol drinks per day
MSAS protocol added.
Monitor his vitamin B12, folic acid while at the hospitalization.
# Tobacco usage:
While on inpatient started him on nicotine patch.
# Hyperlipidemia:
Continue atorvastatin 40 mg
# Hypertension secondary to CAD:
Continue amlodipine, carvedilol
His blood pressure is stable on admission.
Diet--low-cholesterol diet.
DVT--Lovenox subcutaneous
Code--full
Anticipated Discharge: Within 24 hours
Subjective/Interval History
-
Date of Service: September 15, 2025
Overnight patient denies chest pain, palpitation, dizziness, nausea, vomiting, sweating, shortness of breath, fever, chills after the procedure. He has swelling at his right side wrist due to the previous tendon surgery reconstruction. Right
radial artery catheterization support of entry for yesterday's procedure and the site has no bleeding, bruises, swelling.
Patient underwent coronary angiography 09/14 with a result of no thrombus, slow flow noted while on injection at the procedure, intracoronary nitroglycerin immediately improved the flow, suggestive of endothelial dysfunction.
Objective Data
-
Labs:
Laboratory Results
09/15/25
05:59
WBC 6.7
Hgb 14.2
Hct 40.8
Plt Count 198
Sodium Pending
Potassium Pending
Chloride Pending
Carbon Dioxide Pending
BUN Pending
Creatinine Pending
Glucose Pending
Calcium Pending
Total Bilirubin Pending
AST Pending
ALT Pending
Alkaline Phosphatase Pending
Vital Signs:
Vital Signs
Temp Pulse Resp BP Pulse Ox
97.4 F 53 18 123/77 94
09/15/25 05:52 09/15/25 06:00 09/15/25 05:52 09/15/25 05:52 09/15/25 05:52
I&O
09/14/25 09/15/25 09/16/25
06:59 06:59 06:59
Intake Total 240 / 240
Balance 240 / 240
Review of Systems
-
History Source: Patient
All other systems: Reviewed and negative
Physical Exam
-
General: No Apparent Distress
HEENT: Anicteric
Respiratory: Clear to Auscultation
Cardiac: Regular Rhythm and S1/S2
GI: Soft, Nontender and Nondistended
Genito-urinary: No Costovertebral Tender
Musculoskeletal: No Clubbing and No Cyanosis
Skin: Warm, IV Access / Catheter Site (Right wrist :no bruises, bleeding site, swelling at the catheter site. However the past history of tendon correction swelling present) and Other
Neuro: AO x 3
Hematologic / Lymphatic: No Lymphadenopathy
Psych: Calm
[2025-09-15 07:13] LABS: ALT (SGPT) 46 U/L (0-50); AST (SGOT) 35 U/L (17-59); Albumin 3.8 g/dl (3.5-5.0); Alkaline Phosphatase 77 U/L (38-126); Blood Urea Nitrogen 10 mg/dl (9-20); Calcium 9.1 mg/dl (8.4-10.2); Carbon Dioxide 30 mmol/L (22-30); Chloride 101 mmol/L (98-107); Estimated Creatinine Clearance 99 ml/min; Glucose 93 mg/dl (70-99); Potassium 4.4 mmol/L (3.5-5.1); Sodium 135 mmol/L (135-145); Total Protein 6.7 g/dl (6.3-8.2); eGFR > 60.00
[2025-09-15 07:14] VITALS: BP 128/78
--- NOTE | 2025-09-15 08:11 | W.PN.CD ---
Today's Communication / Plan
-
D/C carvedilol.
Monitor response to isosorbide mononitrate.
SL nitro PRN for recurrent chest pain (which may prompt dose increase of isosorbide as an outpatient).
Right wrist precautions.
Impression / Plan
-
Impression/Plan: 60-year-old male with past medical history of dyslipidemia, hypertension, former smoker, alcohol use disorder 6 drinks a day, who is here today with symptoms concerning for accelerating angina.
#Accelerated angina/endothelial dysfunction
-Recent worsening, patient with resting symptoms.
-Still with pain on carvedilol and amlodipine.
-Cardiac catheterization shows no epicardial disease but slow flow in RCA and LAD, improved with intracoronary nitroglycerin. Consistent with endothelial dysfunction.
-D/C carvedilol.
-Start isosorbide mononitrate 30 mg daily. Can use concomitant APAP for headache prophylaxis.
#Hypertension
-Chronic, stable.
-Carvedilol discontinued.
-Monitor response to isosorbide mononitrate.
-Uptitrate CCB if more BP control is needed.
#Dyslipidemia
-Chronic, stable.
-Continue atorvastatin 40 mg daily.
-Goal LDL < 55.
#Former smoker
-Quit a few days ago.
-Encouraged abstinence.
#Alcohol use disorder
-Chronic.
-6 drinks a day.
-Per primary.
-Recommend 1-2 drinks a day/complete cessation.
#Disposition
-IVU status.
-Full code.
-Discharge planning.
Subjective/Interval History:
Cath yesterday showed no epicardial disease but slow flow in the RCA and LAD which significantly improved with intracoronary nitroglycerin.
Findings are consistent with endothelial dysfunction.
Carvedilol stopped.
Isosorbide mononitrate 30 mg daily ordered with APAP for headache prophylaxis.
DATA:
Cardiac Catheterization, 09/14/2025:
CONCLUSIONS
1. Right dominant circulation with no coronary artery disease but notable slow flow in the distal RCA and distal LAD with significant improvement in flow with injection of intracoronary nitroglycerin highly suggestive of endothelial dysfunction.
2. Mildly elevated filling pressures (LVEDP = 15 mmHg at 105.2 kg).
Physical Exam
Vital Signs/Labs
Vital Signs
Temp Pulse Resp BP Pulse Ox
36.4 C 55 18 123/77 98
09/15/25 07:14 09/15/25 07:14 09/15/25 07:14 09/15/25 05:52 09/15/25 07:14
09/13/25 09/14/25 09/15/25
11:59 11:59 11:59
Actual Weight 105.2 kg 105 kg
09/15/25 05:59
09/15/25 05:59
LAB Results
09/14/25
10:52
Troponin I < 0.012
Physical Exam
Constitutional: No acute distress and Comfortable
EENT: Anicteric and Moist mucous membranes
Cardiovascular: Rhythm & rate is regular, Pedal edema is absent, JVD pressure is normal, S1S2 is normal and Murmur/rub/gallop absent
Respiratory: Respiratory effort normal, Lungs clear to auscul., Wheeze Absent, Crackles Absent and Rhonchi Absent
GI: Soft, Distention absent, Flat, Non tender and Normal bowel sounds
Neuro/Psych: AO x 3
Other: Cath Site (Right radial access site is C/D/I.)
Data Reviewed
-
Date of Service: September 15, 2025
Medical Decision Making: Reviewed Test Results, Independent Historian Assessment and Test Interpretation
EKG: Tracing Personally Visualized and interpreted and Report Reviewed by me
Medical Tests (PFT, Pathology etc): Image Personally Visualized and interpreted, Report Reviewed by me, Discussed with Physician, Discussed with Patient and Discussed with Family
Labs: Labs Reviewed by me
Old Records: Reviewed
[2025-09-15] MEDS: ASPIR LOW (ENTERIC COATED) 81 MG PO (09:01)
[2025-09-15] MEDS: PROTONIX 40 MG PO (09:01)
[2025-09-15] MEDS: FOLVITE 1 MG PO (09:01)
[2025-09-15] MEDS: IMDUR (EXTENDED RELEASE) 30 MG PO (09:01)
[2025-09-15] MEDS: NORVASC 5 MG PO (09:01)
[2025-09-15] MEDS: LIPITOR 40 MG PO (09:01)
[2025-09-15] MEDS: THIAMINE INJECTION 200 MG IV (09:02)
[2025-09-15 09:13] LABS: HDL Cholesterol 35 mg/dl; LDL Cholesterol, Calculated 92 mg/dl; Very Low Density Lipoprotein 23 mg/dl (0-30)
[2025-09-15 10:06] LABS: Glycohemoglobin (HgbA1c) 5.0 % (4.0-5.9)
[2025-09-15 11:19] VITALS: BP 116/71
--- NOTE | 2025-09-15 11:33 | CM ---
Reviewed chart. Met with Mr. Corrales to review discharge plans. He states he is feeling well and maybe able to go home. He states prior to admission he resides with his spouse in a two story home without any steps to enter. He states his main
bedroom and full bathroom are on the first floor. He states prior to admission he was independent with ambulation and adls. He states he does not have any DME in the home. He states he has a prescription plan and uses [facility]. We
reviewed alcohol use and the [facility].. At this time he is not interested in connecting with [facility]. Gave him [facility] information. Medical work-up in progress. The discharge plan is to return home with his spouse when medically
stable.
[2025-09-15 11:44] VITALS: BP 126/72
[2025-09-15 11:55] VITALS: BP 126/72; PULSE 64; O2SAT 97
--- NOTE | 2025-09-15 13:09 | PTOTSP ---
Patient demonstrates safe and independent mobility, no skilled physical therapy needs.
--- NOTE | 2025-09-15 16:04 | PTCARENOTE ---
~[id number]: Handoff report received from nightshift RN. Pt AOx4, NSR 60s on tele, SBP 120s, RA satting 98%. Pt denies pain at this time. MSAS completed. Pt independent in room, at bedside. R radial soft and CDI with no signs of bleeding or
hematoma. PT/OT in to work with patient prior to d/c. All needs met at this time, call jacobo within reach.
~[id number]: Patient independent in room. TT sent inquiring about possible dishcharge. DC orders in. Tele pack and PIC removed from patient. VSS. DC paperwork reviewed with patient and , all questions answered. Patient DC'd in stable condition.
--- NOTE | 2025-09-15 16:15 | W.DCSUMMARY ---
Documented by User: Everardo Zuniga MD, Resident 09/15/25 16:37
Discharge Summary
Discharge Data
Date of Admission: 09/14/25
Date of Discharge: 09/15/25
Total time spent discharging patient (in min): 45 minutes
-
Pending Results: No
Hospital Course
Discharging Physician : Gadiel Tyson MD
Everardo Davis MD
Disposition : Home
Primary care physician : Dr Delores castillo MD
Principal Discharge diagnosis : Accelerated angina/endothelial dysfunction
Chronic Discharge diagnosis :
# Chronic hypertension while on hospital course managed with amlodipine 5 mg, however carvedilol discontinued.
# Dyslipidemia managed with atorvastatin 40 mg and increased the dosage to 80 mg while on discharge with a goal LDL less than 55.
# Former smoker quit a few days before the admission recommended to follow-up with PCP in future to discuss regards his alternatives.
# Chronic alcohol use disorder-recommended 1-2 drinks a day followed by complete cessation and advised to follow-up with PCP after the discharge.
# Right wrist chronic pain due to tendon reconstruction.
Hospital Course :
On 09/14 60-year-old male with a past history of dyslipidemia, hypertension, former smoker, alcohol use disorder arrived to the ER with concern for constant pressured chest pain that is made of the chest even while on sleep for the past 6 months, on
it made him to wake up from the sleep. He was noncompliance with his medications--aspirin, statin. His chest pain was constant, nonradiating, had a similar episode in the past and was diagnosed with pericarditis around 2010 not associated
with dizziness, palpitation, blurry vision, shortness of breath, nausea, vomiting, sweating, shortness of breath. CBC, CMP, lipid profile, HbA1c, troponin test were done along with EKG. His troponins at the time of admission was<0.012 normal,
followed by EKG showed flattened T waves, HR 66 bpm, normal axis, sinus rhythm, with vital stable. [employer] consulted and recommended for aspirin 325 mg statin tablet followed by to continue baby aspirin 81 mg, atorvastatin 40 mg, amlodipine 5
mg. Abscess protocol added by given his alcohol use disorder. He underwent cardiac coronary angiography through right radial artery on 09/14/2025. The results are mentioned in procedure findings section. But given prior right wrist
instrumentation/injury his right radial access site was monitored overnight. By given his endothelial dysfunction at the procedure finding his carvedilol switched to isosorbide mononitrate 30 mg daily tablet along with amlodipine 5 mg daily.
However his atorvastatin dosage increased from 40 mg to 80 mg by given his LDL of 92. He was monitored overnight by given his isosorbide mononitrate medication starting dosage. Patient was stable at the course of hospitalization and discharged
with wheel setter recommendation of limited weightbearing for a 1 week. Recommended him to follow-up with wheel setter, PCP within few weeks of discharge. Discharged the patient with sublingual nitroglycerin tablets if it is needed when he
experiences chest pain in future Max dose each of 3 tabs within 15 minutes I requested him to call to his radiologist if the chest pain is not resolved or call 911 in future. Throughout this admission and hospital course the patient was accompanied
by his and she is aware of all the above.
IMPORTANT:
If your symptoms worsen when you get home, go to the Emergency Room if you cannot reach a doctor, or call 911
DVT prophylaxis--Lovenox 40 mg subcutaneous, with full code at this admission.
Important imaging findings : none.
Procedure findings :
On 09/14/2025 left cardiac catheterization reports:
1. Right dominant circulation with no coronary artery disease but notable slow flow in the distal RCA and distal LAD with significant improvement in flow with injection of intracoronary nitroglycerin highly suggestive of endothelial dysfunction.
2. Mildly elevated filling pressures (LVEDP = 15 mmHg at 105.2 kg).
RECOMMENDATION by wheel setter:
1. Expectant management after cardiac catheterization via right radial approach.
2. Limited weight bearing on the right for one week.
3. Treatment of underlying endothelial dysfunction. Discontinue carvedilol in favor of isosorbide mononitrate 30 mg daily. Maintain amlodipine 5 mg daily.
4. Aggressive primary prevention.
5. Given prior right wrist instrumentation/injury, monitor right radial access site overnight.
Discharge Plan
-
Patient Disposition: Home (Routine Discharge)
Discharge Diagnosis/Procedures: Accelerated angina/endothelial dysfunction
Secondary hypertension
Dyslipidemia
Former smoker
Alcohol use disorder
Condition: Fair
Diet: Low Fat and Low Cholesterol
Activity: No restrictions
Driving Restrictions: As prior to admission
Bathing Restrictions: None
Instructions: Angina, BLOOD PRESSURE
Referrals:
Gadiel Torres DO [Active, Cardiology]
Delores Castillo DO [Family Provider, Family Practice]
Additional Discharge Medication Instructions: - Take medications regularly as instructed
-Atorvastatin dosage increased from 40 mg to 80 mg daily, take every day.
-Follow-up with wheel setter within few weeks of discharge
-Follow-up with PCP within few weeks of discharge.
-Discuss in future regards to nicotine replacement with PCP.
- NTG sublingual tablet prescribed whenever you get chest pain make sure to take 3 tablets max and call to 911, or call your wheel setter for further management.
- [0.4 mg NTG sublingual tablet take PRN for chest pain
maximum take 3 tablets within 15 mins.
every 5 mins 1 tab in total 3tablets in 15 mins.]
Prescriptions:
New
isosorbide mononitrate 30 mg Tablet Extended Release 24 Hr
30 mg PO DAILY Qty: 30 0RF
folic acid 1 mg Tablet
1 mg PO DAILY Qty: 30 0RF
nitroglycerin 0.4 mg tablet, sublingual
0.4 mg sublingual Q5-15M Qty: 7 0RF
Rx Instructions:
0.4 mg NTG sublingual tablet take PRN for chest pain
maximum take 3 tablets within 15 mins.
every 5 mins 1 tab in total 3tablets in 15 mins.
Continued
amlodipine [Norvasc] 5 mg Tablet
5 mg PO DAILY
omeprazole 40 mg Capsule,Delayed Release(Dr/Ec)
40 mg PO DAILY
aspirin 81 mg Tablet,Delayed Release (Dr/Ec)
81 mg PO DAILY
Changed
atorvastatin [Lipitor] 40 mg Tablet
80 mg PO DAILY Qty: 60 0RF
Discontinued
carvedilol [Coreg] 3.125 mg Tablet
3.125 mg PO BID
Discharge Orders:
Discharge Patient (As Directed); Ordered 09/15/25
Ordered By: Everardo Zuniga
Care Plan Goals
Care Plan Goals:
Problem: Readiness for enhanced knowledge related to diagnosis and treatment plan
Goal: Understand your diagnosis and treatment plan needs, including medications if applicable.
Instructions: Know your diagnosis, underlying causes and treatment plan options, including medications if applicable. Consult with your health care team to learn about your diagnosis and treatment plan, including medications if applicable.
Discharge Date and Time
Discharge Date/Time: 09/15/25 16:00
Print Language: BARBADIAN

Documented by User: Gadiel Artis DO 09/16/25 08:15
Discharge Summary
Discharge Data
Date of Admission: 09/14/25
Date of Discharge: 09/16/25
Total time spent discharging patient (in min): 44
Discharge Plan
-
Patient Disposition: Home (Routine Discharge)
Discharge Diagnosis/Procedures: Accelerated angina/endothelial dysfunction
Secondary hypertension
Dyslipidemia
Former smoker
Alcohol use disorder
Condition: Fair
Diet: Low Fat and Low Cholesterol
Activity: No restrictions
Driving Restrictions: As prior to admission
Bathing Restrictions: None
Instructions: Angina, BLOOD PRESSURE
Referrals:
Gadiel Torres DO [Active, Cardiology]
Delores Castillo DO [Family Provider, Family Practice]
Additional Discharge Medication Instructions: - Take medications regularly as instructed
-Atorvastatin dosage increased from 40 mg to 80 mg daily, take every day.
-Follow-up with wheel setter within few weeks of discharge
-Follow-up with PCP within few weeks of discharge.
-Discuss in future regards to nicotine replacement with PCP.
- NTG sublingual tablet prescribed whenever you get chest pain make sure to take 3 tablets max and call to 911, or call your wheel setter for further management.
- [0.4 mg NTG sublingual tablet take PRN for chest pain
maximum take 3 tablets within 15 mins.
every 5 mins 1 tab in total 3tablets in 15 mins.]
Prescriptions:
New
isosorbide mononitrate 30 mg Tablet Extended Release 24 Hr
30 mg PO DAILY Qty: 30 0RF
folic acid 1 mg Tablet
1 mg PO DAILY Qty: 30 0RF
nitroglycerin 0.4 mg tablet, sublingual
0.4 mg sublingual Q5-15M Qty: 7 0RF
Rx Instructions:
0.4 mg NTG sublingual tablet take PRN for chest pain
maximum take 3 tablets within 15 mins.
every 5 mins 1 tab in total 3tablets in 15 mins.
Continued
amlodipine [Norvasc] 5 mg Tablet
5 mg PO DAILY
omeprazole 40 mg Capsule,Delayed Release(Dr/Ec)
40 mg PO DAILY
aspirin 81 mg Tablet,Delayed Release (Dr/Ec)
81 mg PO DAILY
Changed
atorvastatin [Lipitor] 40 mg Tablet
80 mg PO DAILY Qty: 60 0RF
Discontinued
carvedilol [Coreg] 3.125 mg Tablet
3.125 mg PO BID
Discharge Orders:
Discharge Patient (As Directed); Ordered 09/15/25
Ordered By: Everardo Zuniga
Care Plan Goals
Care Plan Goals:
Problem: Readiness for enhanced knowledge related to diagnosis and treatment plan
Goal: Understand your diagnosis and treatment plan needs, including medications if applicable.
Instructions: Know your diagnosis, underlying causes and treatment plan options, including medications if applicable. Consult with your health care team to learn about your diagnosis and treatment plan, including medications if applicable.
Discharge Date and Time
Discharge Date/Time: 09/15/25 16:00
Print Language: BARBADIAN
== END 2025-09-15 16:00 | disposition home or self-care (01) | DRG 287 ==
LOC: IVU 15:42
PROVIDERS: Internal Medicine Cardiovascular Disease; ADMITTING PHYSICIAN Internal Medicine; CONSULT PHYSICIAN Internal Medicine Cardiovascular Disease; EMERGENCY PHYSICIAN Emergency Medicine; FAMILY PHYSICIAN Student in an Organized Health Care Education/Training Program
PROC: B2111ZZ Fluoroscopy of Multiple Coronary Arteries using Low Osmolar Contrast (ICD-10-PCS; 2025-09-14)
PROC: 4A023N7 Measurement of Cardiac Sampling and Pressure, Left Heart, Percutaneous Approach (ICD-10-PCS; 2025-09-14)
DX: I25.110 Atherosclerotic heart disease of native coronary artery with unstable angina pectoris (principal); F10.10 Alcohol abuse, uncomplicated; Z79.899 Other long term (current) drug therapy; K21.9 Gastro-esophageal reflux disease without esophagitis; E78.00 Pure hypercholesterolemia, unspecified; Z56.0 Unemployment, unspecified; F17.200 Nicotine dependence, unspecified, uncomplicated; Z79.82 Long term (current) use of aspirin; I15.9 Secondary hypertension, unspecified; Z82.49 Family history of ischemic heart disease and other diseases of the circulatory system; Z91.148 Patient's other noncompliance with medication regimen for other reason
CPT/HCPCS: 80053; 80061; 83036; 84484; 85025; 93005; 93458; 96360; 97162; 97166; 99152; 99153; 99285; 99406; C1769; C1894; Q9967